=== PATIENT | male | born 1970 | race African-American/Black ===

== ENCOUNTER 2022-07-31 09:53 | Observation (INO) ==
--- NOTE | 2022-07-31 10:32 | Emergency Department Note ---
Impression & Plan Pulmonary embolism, DVT (deep venous thrombosis), Acute hyperglycemia ED Provider Note NAME: KRISTY [id number] COOKIE AGE: 52 SEX: M : 1970 ARRIVES VIA: Walk-In INFORMANT: Patient, ED PROVIDER(S): Tarik Simmons DO CHIEF COMPLAINT: Leg pain HPI: The patient is a 52-year-old male who presented to the emergency department from the assisted for an evaluation of leg pain. The patient states over the last few days has been noticing leg pain and a hardness behind his left knee through his left thigh and down to his left calf. He was evaluated in the [facility] and sent to the emergency department for an evaluation of possible DVT. The patient states he has had intermittent episodes of chest pain. He does notice some shortness of breath. He has no history of venous thromboembolic disease. He has been compliant with outpatient medications which include medication for diabetes. He states his blood sugars have been high at times. ROS: See above HPI for pertinent positives & negatives. A total of 10 systems reviewed and were otherwise negative. PAST MEDICAL HISTORY: See Below PAST SURGICAL HISTORY: See Below FAMILY HISTORY: See Below SOCIAL HISTORY: See Below HOME MEDICATIONS: See Below ALLERGIES: See Below VITALS: See Below PHYSICAL EXAMINATION: GENERAL: Patient is awake alert in no acute distress patient is resting comfortably and showing no signs of anxiety EYES: The conjunctivae are clear. The pupils are round and reactive. EARS, NOSE, MOUTH AND THROAT: The nose is without any evidence of any deformity. Mucous membranes are moist. Tongue is midline. NECK: The neck is nontender and supple. RESPIRATORY: Normal respiratory effort is noted there is no evidence of wheezing rhonchi or rales CARDIOVASCULAR: Regular rate and rhythm noted there no murmurs rubs or gallops normal S1 normal S2. GASTROINTESTINAL: The abdomen is soft. Abdomen is nontender. MUSCULOSKELETAL/EXTREMITIES: There is no evidence of gross deformity full range of motion is noted in the hips and shoulders. SKIN: There is no obvious evidence of any rash. There are no petechiae, pallor or cyanosis noted. There is tenderness over the left popliteal region. There is no significant pedal edema. Pulses are symmetric in both feet. Skin is warm and dry. NEUROLOGIC: Patient is awake alert and oriented x3 MEDICAL DECISION MAKING: The patient is a 52-year-old male who presented to the emergency department for an evaluation of leg pain. The patient has leg pain which has been ongoing for the last 48 hours. He had a palpable cord and tenderness over the area that would be concerning for a DVT. I discussed patient's laboratory and radiographic studies with him. He was found of a very significantly elevated D- dimer. He was found to have extensive DVT on lower extremity Doppler. This prompted a CT of the chest which shows bilateral pulmonary embolism with proximal clot as well as significant clot burden. He was started on heparin. I [facility] the [facility] have agreed to evaluate the patient in the emergency department for further management and disposition. The patient's vital signs did not reveal significant tachycardia or hypoxia. He did have some shortness of breath with exertion however. Given the patient's living situation at this time I do not feel he would be an immediate good candidate for outpatient treatment. Triage Nursing notes reviewed. Prior medical records reviewed Vital Signs: reviewed and remarkable for no significant abnormalities Differential diagnosis: Cardiac ischemia, aortic dissection, pulmonary embolism, pneumothorax, pneumonia, pericarditis, myocarditis, esophageal rupture, GERD, cholecystitis, pancreatitis, musculoskeletal, as well as other pathologies. ER treatment provided: See below Diagnostics interpreted by me: ECG: EKG was obtained in the emergency department. My interpretation is normal sinus rhythm at 86 bpm. There was no ectopy. There was no acute ST segment abnormalities noted. Biphasic T waves noted in the high anterior leads. No previous tracing was available. Cardiac Monitoring: An order was placed for continuous cardiac monitoring. The monitor shows a rate of 95 bpm with sinus rhythm. Laboratory studies: As stated above and show below. Imaging studies: See below. Radiographic imaging was reviewed by myself Consultation(s): I discussed this case with Dr. Jacobson who [facility] ED COURSE: Procedures: none Critical Care: I have personally spent greater than 45 minutes of critical care time in the direct management of this patient. This includes bedside care, interpretation of diagnostic studies, and testing, discussion with consultants, patient, and family members, and other required patient management activities. This 45 minutes is in excess of all separately billable procedures. Past Med/Surg History Medical History Antisocial personality disorder Hyperlipidemia Schizophrenia SVT (supraventricular tachycardia) Type 2 diabetes mellitus Allergies Allergies Allergy/AdvReac Type Severity Reaction Status Date / Time No Known Allergies Allergy Verified 07/31/22 14:35 Home Meds Home Medications Medication Instructions Recorded Confirmed aripiprazole 20 mg tablet 20 mg PO DAILY 07/31/22 07/31/22 aspirin 81 mg tablet,delayed 81 mg PO DAILY 07/31/22 07/31/22 release hydroxyzine pamoate 50 mg capsule 50 mg PO BID 07/31/22 07/31/22 metoprolol tartrate 50 mg tablet 25 mg PO BID 07/31/22 07/31/22 (Lopressor) sertraline 100 mg tablet 100 mg PO DAILY 07/31/22 07/31/22 Results & Data (ED) Vital Signs Vital Signs - 24 hr 07/31/22 09:57 07/31/22 13:13 07/31/22 13:12 Temperature 36.7 C Temperature Source Temporal Artery Scan Pulse Rate 99 H 78 78 Pulse Rate from SpO2 Sensor 78 Respiratory Rate 18 19 Blood Pressure 137/86 134/83 Blood Pressure Mean 103 100 Pulse Oximetry 95 98 Oxygen Delivery Method Room Air Sepsis Recent Fever Within 48 Hours No Sepsis New/Unexplained Change in Mental Status No Sepsis Action Taken by Nursing No Action Required 07/31/22 14:00 07/31/22 14:30 Temperature Temperature Source Pulse Rate 81 95 H Pulse Rate from SpO2 Sensor 81 Respiratory Rate 19 19 Blood Pressure 127/84 138/90 Blood Pressure Mean 98 106 Pulse Oximetry 95 Oxygen Delivery Method Sepsis Recent Fever Within 48 Hours Sepsis New/Unexplained Change in Mental Status Sepsis Action Taken by Long-Term Medications Current Medication List: was personally reviewed by me Laboratory Data Attestation: I reviewed the patient's lab results. 07/31/22 11:29 07/31/22 11:29 Lab Results 07/31/22 07/31/22 07/31/22 Range/Units 11:29 11:29 11:29 WBC 7.82 (4.8-10.8) K/ul RBC 4.94 (4.70-6.10) M/uL Hgb 14.0 (14.0-18.0) g/dl Hct 41.6 L (42.0-52.0) % MCV 84.2 (80.0-100.0) fL MCH 28.3 (25.0-34.0) pg MCHC 33.7 (32.0-36.0) g/dL RDW Std Deviation 40.3 (36.4-46.3) fL RDW Coeff of Romeo 13.2 (11.5-14.5) % Plt Count 301 (130-400) K/uL MPV 9.6 (9.4-12.4) fL Immature Gran % (Auto) 0.3 % Neut % (Auto) 68.7 % Lymph % (Auto) 21.4 % Carter % (Auto) 8.3 % Eos % (Auto) 0.9 % Baso % (Auto) 0.4 % Neut # (Auto) 5.38 (1.40-6.50) K/uL Lymph # (Auto) 1.67 (1.2-3.4) K/uL Carter # (Auto) 0.65 H (0.11-0.59) K/uL Eos # (Auto) 0.07 (0-0.50) K/uL Baso # (Auto) 0.03 (0-0.2) K/uL Immature Gran # (Auto) 0.02 (0.01-0.20) K/uL PT 11.2 (9.0-12.0) Seconds INR 1.1 (0.9-1.1) APTT 25.7 (21.0-31.0) Seconds PTT Ratio 0.9 D-Dimer [id number] H* (0-500) ug/L FEU Sodium 138 (136-145) mmol/L Potassium 4.2 (3.5-5.1) mmol/L Chloride 103 (98-107) mmol/L Carbon Dioxide 31 (21-32) mmol/L Anion Gap 4 (3-11) BUN 14 (6-23) mg/dl Creatinine 0.87 (0.6-1.4) mg/dl Est Cr Clr Drug Dosing 110.3 ml/min Est GFR ( Amer) 115.8 ml/min Est GFR (Non-Af Amer) 99.9 ml/min BUN/Creatinine Ratio 16.1 (10-20) Glucose 304 H* (70-99(Fasting)) mg/dl Calcium 9.7 (8.5-10.1) mg/dl Total Bilirubin 0.4 (0.2-1.0) mg/dl AST 12 L (13-39) U/L ALT 12 (7-52) U/L Alkaline Phosphatase 92 (34-104) U/L Troponin I High Sens 3.0 (0-20) pg/ml Total Protein 7.6 (6.0-8.3) gm/dl Albumin 3.8 (3.4-5.0) gm/dl Globulin 3.8 (2.5-4.0) gm/dl Albumin/Globulin Ratio 1.0 (0.9-2) Lipase 11 (11-82) U/L SARS-CoV-2, RNA, NAAT (NEGATIVE) 07/31/22 Range/Units 13:50 WBC (4.8-10.8) K/ul RBC (4.70-6.10) M/uL Hgb (14.0-18.0) g/dl Hct (42.0-52.0) % MCV (80.0-100.0) fL MCH (25.0-34.0) pg MCHC (32.0-36.0) g/dL RDW Std Deviation (36.4-46.3) fL RDW Coeff of Romeo (11.5-14.5) % Plt Count (130-400) K/uL MPV (9.4-12.4) fL Immature Gran % (Auto) % Neut % (Auto) % Lymph % (Auto) % Carter % (Auto) % Eos % (Auto) % Baso % (Auto) % Neut # (Auto) (1.40-6.50) K/uL Lymph # (Auto) (1.2-3.4) K/uL Carter # (Auto) (0.11-0.59) K/uL Eos # (Auto) (0-0.50) K/uL Baso # (Auto) (0-0.2) K/uL Immature Gran # (Auto) (0.01-0.20) K/uL PT (9.0-12.0) Seconds INR (0.9-1.1) APTT (21.0-31.0) Seconds PTT Ratio D-Dimer (0-500) ug/L FEU Sodium (136-145) mmol/L Potassium (3.5-5.1) mmol/L Chloride (98-107) mmol/L Carbon Dioxide (21-32) mmol/L Anion Gap (3-11) BUN (6-23) mg/dl Creatinine (0.6-1.4) mg/dl Est Cr Clr Drug Dosing ml/min Est GFR ( Amer) ml/min Est GFR (Non-Af Amer) ml/min BUN/Creatinine Ratio (10-20) Glucose (70-99(Fasting)) mg/dl Calcium (8.5-10.1) mg/dl Total Bilirubin (0.2-1.0) mg/dl AST (13-39) U/L ALT (7-52) U/L Alkaline Phosphatase (34-104) U/L Troponin I High Sens (0-20) pg/ml Total Protein (6.0-8.3) gm/dl Albumin (3.4-5.0) gm/dl Globulin (2.5-4.0) gm/dl Albumin/Globulin Ratio (0.9-2) Lipase (11-82) U/L SARS-CoV-2, RNA, NAAT NEGATIVE (NEGATIVE) Administered Medications Heparin Sodium/Dextrose (Heparin Sodium/Dextrose) 25,000 units in 500 mls @ 29 mls/hr IV .[id number] [facility]; Protocol Stop: 08/30/22 13:44 Last Admin: 07/31/22 14:08 Dose: 1,450 units/hr, 29 mls/hr Documented By: DEVAN Co-signed By: [id number] Discontinued Medications Heparin Sodium (Porcine) (Heparin Sod (Porcine) 1000 Unit/Ml) 6,000 units IV NOW ONE Stop: 07/31/22 14:16 Last Admin: 07/31/22 14:07 Dose: 6,000 units Documented By: DEVAN Co-signed By: [id number] Ioversol (Optiray 320 500ml) 120 ml IV ONCE ONE Stop: 07/31/22 13:25 Last Admin: 07/31/22 13:25 Dose: 120 ml Documented By: [place] Imaging Data Radiologist's Impression: Venous Doppler Study 07/31/22 10:24 US venous doppler LE LT CLINICAL HISTORY: pain TECHNIQUE: Left lower extremity real-time compression venous ultrasound with Color Doppler imaging. Utilizing real-time ultrasonic imaging multiple real time high-resolution ultrasonic images with compression and noncompression maneuvers of the deep venous system in addition to color doppler imaging were performed from the common femoral vein through the proximal calf veins. COMPARISON: None available at the time of this dictation. FINDINGS/IMPRESSION: A deep venous thrombus extends from the proximal femoral vein to the mid posterior tibial and peroneal veins. ACT 112: Negative or not required by law. Electronically signed by: Gary Danielson M.D. 07/31/2022 12:45 PM Chest X-Ray 07/31/22 10:25 XR chest 1V portable CLINICAL HISTORY: Chest pain, nonspecific COMPARISON STUDY: No previous studies for comparison. FINDINGS: Lung volumes are normal. Lungs are clear. There is no pneumothorax or pleural effusion. Cardiac size is normal. Mediastinal contours are normal. There is no evidence for pulmonary edema. IMPRESSION: No acute cardiopulmonary findings. ACT 112: Negative or not required by law. Electronically signed by: Irvin Walden M.D. 07/31/2022 10:59 AM Chest CTA 07/31/22 13:13 CT ANGIOGRAM OF THE CHEST CLINICAL HISTORY: Elevated d-dimer. Deep venous thrombosis. COMPARISON STUDY: Chest x-ray dated 07/31/2022. TECHNIQUE: Following the IV administration of 120 cc of Optiray 320, CT angiogram of the chest was performed from the upper abdomen to the thoracic inlet utilizing the pulmonary embolus protocol. Images are reviewed in the axial, sagittal, and coronal planes. 3-D MIPS images are created and assessed. IV contrast was administered without complication. A dose lowering technique was utilized adhering to the principles of ALARA. CT DOSE: 745.05 mGy.cm FINDINGS: Thyroid: Mildly enlarged and heterogeneous. Thoracic aorta: The thoracic aorta is normal in caliber and demonstrates standard 3-vessel arch anatomy. No dissection is seen. Pulmonary vasculature: The pulmonary trunk is normal in caliber. There is pulmonary embolus within the distal right main pulmonary artery. This extends into the upper, middle, and lower lobe pulmonary arteries and segmental and subsegmental branches. Thrombus is also seen within the distal left main pulmonary artery. This extends into the left lower lobe and lingular pulmonary arteries and segmental and subsegmental branches. There are segmental and subsegmental pulmonary emboli within the left upper lobe. Heart: The heart is normal in size and without pericardial effusion. Lungs and pleural spaces: There is trace left pleural and dependent bibasilar atelectasis. No airspace consolidation is seen typical for pneumonia. The trachea and central airways are clear. Mediastinum: There is no mediastinal lymphadenopathy. Gwen: Clear. Axillae: There is no axillary lymphadenopathy. Upper abdomen: A 12 mm left adrenal nodule meets CT criteria for a fat- containing adenoma. Partially visualized upper abdominal viscera is otherwise within normal limits. Skeletal structures: No lytic or blastic bony lesions are seen. IMPRESSION: 1. Extensive bilateral pulmonary embolus as above. 2. Trace left pleural effusion. 3. No airspace consolidation is identified. 4. Additional findings as above. ACT 112: Negative or not required by law. Electronically signed by: Baljit Diaz M.D. 07/31/2022 1:52 PM Discharge Plan Visit Data Chief Complaint: Lower Extremity Injury/Pain Stated Complaint: POSSIBLE LOWER LEFT DVT ED Provider: Tarik Simmons Discharge Problem: Pulmonary embolism, DVT (deep venous thrombosis), Acute hyperglycemia Patient Disposition: Being Evaluated by Hospitalist Forms Stand Alone Forms: My [facility] [facility] Prescriptions Prescriptions: No Action aripiprazole 20 mg tablet 20 mg PO DAILY sertraline 100 mg tablet 100 mg PO DAILY hydroxyzine pamoate 50 mg capsule 50 mg PO BID metoprolol tartrate [Lopressor] 50 mg tablet 25 mg PO BID aspirin 81 mg tablet,delayed release (DR/EC) 81 mg PO DAILY Referrals Referrals: Meron NGUYEN [Primary Care Provider] -
--- NOTE | 2022-07-31 11:00 | XRay Report ---
XR chest 1V portable CLINICAL HISTORY: Chest pain, nonspecific COMPARISON STUDY: No previous studies for comparison. FINDINGS: Lung volumes are normal. Lungs are clear. There is no pneumothorax or pleural effusion. Car diac size is normal. Mediastinal contours are normal. There is no evidence for pulmonary edema. IMPRESSION: No acute cardiopulmonary findings. ACT 112: Negative or not required by law. Electronically signed by: Irvin Walden M.D. 07/31/2022 10:59 AM
[2022-07-31 11:53] LABS: Basophils # (auto) 0.03 K/uL (0-0.2); Basophils % (auto) 0.4 %; Eosinophils # (auto) 0.07 K/uL (0-0.50); Eosinophils % (auto) 0.9 %; Hematocrit (blood only) 41.6 % (42.0-52.0); Immature Granulocytes # (auto) 0.02 K/uL (0.01-0.20); Immature Granulocytes % (auto) 0.3 %; Lymphocytes # (auto) 1.67 K/uL (1.2-3.4); Lymphocytes % (auto) 21.4 %; Mean Corpuscular Hemoglobin 28.3 pg (25.0-34.0); Mean Corpuscular Hgb Conc 33.7 g/dL (32.0-36.0); Mean Corpuscular Volume 84.2 fL (80.0-100.0); Mean Platelet Volume 9.6 fL (9.4-12.4); Monocytes # (auto) 0.65 K/uL (0.11-0.59); Monocytes % (auto) 8.3 %; Neutrophils # (auto) 5.38 K/uL (1.40-6.50); Neutrophils % (auto) 68.7 %; Platelet Count 301 K/uL (130-400); RDW Coefficient of Variation 13.2 % (11.5-14.5); RDW Standard Deviation 40.3 fL (36.4-46.3); Red Blood Count 4.94 M/uL (4.70-6.10); White Blood Count 7.82 K/ul (4.8-10.8)
[2022-07-31 12:23] LABS: INR 1.1 (0.9-1.1); Partial Thromboplastin Ratio 0.9; Partial Thromboplastin Time 25.7 Seconds (21.0-31.0); Prothrombin Time 11.2 Seconds (9.0-12.0)
[2022-07-31 12:41] LABS: Albumin Level 3.8 gm/dl (3.4-5.0); BUN Creatinine Ratio 16.1 (10-20); Bilirubin,Total 0.4 mg/dl (0.2-1.0); Calcium 9.7 mg/dl (8.5-10.1); Creatinine Clr Calc Pharmacy 110.3 ml/min; Est GFR (African American) 115.8 ml/min; Est GFR (Non-African American) 99.9 ml/min; Globulin 3.8 gm/dl (2.5-4.0); Potassium 4.2 mmol/L (3.5-5.1); Total Protein 7.6 gm/dl (6.0-8.3)
--- NOTE | 2022-07-31 12:47 | Ultrasound Report ---
US venous doppler LE LT CLINICAL HISTORY: pain TECHNIQUE: Left lower extremity real-time compression venous ultrasound with Color Doppler imaging. U tilizing real-time ultrasonic imaging multiple real time high-resolution ultrasonic images with compr ession and noncompression maneuvers of the deep venous system in addition to color doppler imaging we re performed from the common femoral vein through the proximal calf veins. COMPARISON: None available at the time of this dictation. FINDINGS/IMPRESSION: A deep venous thrombus extends from the proximal femoral vein to the mid posterior tibial and peronea l veins. ACT 112: Negative or not required by law. Electronically signed by: Gary Danielson M.D. 07/31/2022 12:45 PM
[2022-07-31 13:11] LABS: D Dimer 24720 ug/L FEU (0-500)
[2022-07-31] MEDS ORDERED: OPTIRAY 320 500ml IV ONE (13:24)
[2022-07-31] MEDS ORDERED: Heparin IV Adult Wt-Based Standard WITH Bolus Protocol IV STA (13:29)
[2022-07-31] MEDS ORDERED: HEPARIN SOD (PORCINE) 1000 UNIT/ML IV ONE ×2 (13:44→14:15)
--- NOTE | 2022-07-31 13:53 | CT Scan Report ---
CT ANGIOGRAM OF THE CHEST CLINICAL HISTORY: Elevated d-dimer. Deep venous thrombosis. COMPARISON STUDY: Chest x-ray dated 07/31/2022. TECHNIQUE: Following the IV administration of 120 cc of Optiray 320, CT angiogram of the chest was pe rformed from the upper abdomen to the thoracic inlet utilizing the pulmonary embolus protocol. Images are reviewed in the axial, sagittal, and coronal planes. 3-D MIPS images are created and assessed. I V contrast was administered without complication. A dose lowering technique was utilized adhering to the principles of ALARA. CT DOSE: 745.05 mGy.cm FINDINGS: Thyroid: Mildly enlarged and heterogeneous. Thoracic aorta: The thoracic aorta is normal in caliber and demonstrates standard 3-vessel arch anato my. No dissection is seen. Pulmonary vasculature: The pulmonary trunk is normal in caliber. There is pulmonary embolus within th e distal right main pulmonary artery. This extends into the upper, middle, and lower lobe pulmonary a rteries and segmental and subsegmental branches. Thrombus is also seen within the distal left main pu lmonary artery. This extends into the left lower lobe and lingular pulmonary arteries and segmental a nd subsegmental branches. There are segmental and subsegmental pulmonary emboli within the left upper lobe. Heart: The heart is normal in size and without pericardial effusion. Lungs and pleural spaces: There is trace left pleural and dependent bibasilar atelectasis. No airspac e consolidation is seen typical for pneumonia. The trachea and central airways are clear. Mediastinum: There is no mediastinal lymphadenopathy. Gwen: Clear. Axillae: There is no axillary lymphadenopathy. Upper abdomen: A 12 mm left adrenal nodule meets CT criteria for a fat-containing adenoma. Partially visualized upper abdominal viscera is otherwise within normal limits. Skeletal structures: No lytic or blastic bony lesions are seen. IMPRESSION: 1. Extensive bilateral pulmonary embolus as above. 2. Trace left pleural effusion. 3. No airspace consolidation is identified. 4. Additional findings as above. ACT 112: Negative or not required by law. Electronically signed by: Baljit Diaz M.D. 07/31/2022 1:52 PM
[2022-07-31] MEDS: HEPARIN SODIUM/DEXTROSE 25,000 UNITS/500 ML BAG IV SCH (14:08)
--- NOTE | 2022-07-31 14:32 | History & Physical Report ---
Date of Service July 31, 2022 Assessment & Plan (1) Acute pulmonary embolism: Plan: Unprovoked - recommend 6 months of treatment and making sure he is up-to-date on all cancer screening (he has never had a colonoscopy) Basic hypercoagulable work-up with a.m. labs. Consider follow-up with hematology. Intravenous heparin standard with bolus TTE Discuss with [facility] tomorrow regarding ongoing treatment (2) Left leg DVT: Plan: No common femoral vein thrombosis noted therefore not consistent with May Thurner syndrome. Treatment with anticoagulation as above (3) Hyperlipidemia: Plan: Continue rosuvastatin 20 mg p.o. daily (4) Schizophrenia: Plan: Continue aripiprazole 20 mg p.o. daily Continue sertraline 100 mg p.o. daily Continue hydroxyzine 100 mg p.o. at bedtime (5) Type 2 diabetes mellitus: Plan: HbA1c with a.m. labs Switch Novolin N for Lantus with the same dosing of 32 units in the morning and 20 units at night NovoLog based on basal dosing: --Goal BSG Range: Low 110 mg/dL, High 140 mg/dL --Correction Factor: 20 mg/dL/unit --Carbohydrate ratio = 7 g/unit --BSGs ACHS if eating, q6h if npo (6) Hypertension: Plan: Continue metoprolol tartrate 12.5 mg p.o. twice daily Plan VTE Prophylaxis -intravenous heparin as above Diet -type 2 diabetes Disposition -observation status to PCU Admission and Anticipated Discharge Date Admission Date: July 31, 2022 History of Present Illness Chief Complaint: Left leg swelling Primary Care Provider: [employer] Meron Damon Ricci is a 52-year-old male from [facility] who presents to the ER with left lower leg swelling. Increased swelling and pain in his left leg thigh and calf progressively getting worse over the last week. He was sent to the ER for evaluation of possible DVT. Ultrasound venous Doppler of his left lower extremity confirmed a deep vein thrombosis extending from the proximal femoral vein to the mid posterior tibial and peroneal veins. He denies any chest pain or shortness of breath however shortness of breath on exertion was noted by the ER physician therefore he underwent CT for PE which showed bilateral extensive pulmonary emboli. He was started on intravenous heparin standard drip with bolus and referred to medicine for admission and ongoing management of pulmonary emboli. He is a non-smoker. No family history of DVT or PE although he is not close to his family. No prior colonoscopy for cancer screening. No known sickle cell trait or anemia. Allergies Allergy/AdvReac Type Severity Reaction Status Date / Time No Known Allergies Allergy Verified 07/31/22 15:24 Home Medications Medication Instructions Recorded Confirmed Type aripiprazole 20 mg tablet 20 mg PO DAILY 07/31/22 07/31/22 History aspirin 81 mg tablet,delayed 81 mg PO DAILY 07/31/22 07/31/22 History release hydroxyzine pamoate 50 mg capsule 100 mg PO HS 07/31/22 07/31/22 History insulin NPH isoph U-100 human 100 20 unit subcut QPM 07/31/22 07/31/22 History unit/mL subcutaneous suspension (Novolin N NPH U-100 Insulin isophane) insulin NPH isoph U-100 human 100 32 unit subcut QAM 07/31/22 07/31/22 History unit/mL subcutaneous suspension (Novolin N NPH U-100 Insulin isophane) insulin regular human 100 unit/mL 0 unit subcut .UD PRN Hyperglycemia 07/31/22 07/31/22 History injection solution (Novolin R Regular U-100 Insulin) insulin regular human 100 unit/mL 10 unit subcut QPM 07/31/22 07/31/22 History injection solution (Novolin R Regular U-100 Insulin) insulin regular human 100 unit/mL 14 unit subcut QAM 07/31/22 07/31/22 History injection solution (Novolin R Regular U-100 Insulin) metoprolol tartrate 25 mg tablet 12.5 mg PO BID 07/31/22 07/31/22 History rosuvastatin 20 mg tablet 20 mg PO DAILY 07/31/22 07/31/22 History sertraline 100 mg tablet 100 mg PO DAILY 07/31/22 07/31/22 History Past Med/Surg History Medical History Antisocial personality disorder Hyperlipidemia Schizophrenia SVT (supraventricular tachycardia) Type 2 diabetes mellitus Social History Smoking Status: Never smoker Hx Alcohol Use: No Hx Substance Use: No Preferred Language: Honduran Communication Ability: Effective Clinical Product Manager Required: No Beliefs That Will Affect Care: None Current Living Situation: Other Current Living Situation Comment: [facility] Feels Safe at Home: Yes Assistive Devices: None Review of Systems Review of Systems: All systems reviewed & are unremarkable except as noted in HPI & below Physical Exam Constitutional: WD/WN, vitals as above ENMT: external ear and nose normal, oropharynx normal Respiratory: normal respiratory effort, lungs clear to auscultation Cardiovascular: RRR, no murmur, no edema Gastrointestinal (Abdomen): normal bowel sounds, soft, nontender, no hepatosplenomegaly Musculoskeletal: no cyanosis or clubbing, extremities motor strength 5/5 Skin: no rashes, warm and dry Neurologic: moves all extremities and awake; not confused Psychiatric: A+Ox3, euthymic affect Results & Data Results & Data ([facility]) Vital Signs (Past 12 Hours) Vital Signs Temp Pulse Resp BP Pulse Ox O2 Del Method 07/31/22 14:00 81 19 127/84 95 07/31/22 13:12 78 19 134/83 98 07/31/22 13:13 78 07/31/22 09:57 36.7 C 99 H 18 137/86 95 Room Air Laboratory Results Abnormal lab results 07/31/22 07/31/22 07/31/22 Range/Units 11:29 11:29 11:29 Hct 41.6 L (42.0-52.0) % [place] # (Auto) 0.65 H (0.11-0.59) K/uL D-Dimer 23884 H* (0-500) ug/L FEU Glucose 304 H* (70-99(Fasting)) mg/dl AST 12 L (13-39) U/L Diagnostic Findings XR chest 1V portable CLINICAL HISTORY: Chest pain, nonspecific COMPARISON STUDY: No previous studies for comparison. FINDINGS: Lung volumes are normal. Lungs are clear. There is no pneumothorax or pleural effusion. Cardiac size is normal. Mediastinal contours are normal. There is no evidence for pulmonary edema. IMPRESSION: No acute cardiopulmonary findings. CT ANGIOGRAM OF THE CHEST CLINICAL HISTORY: Elevated d-dimer. Deep venous thrombosis. COMPARISON STUDY: Chest x-ray dated 07/31/2022. TECHNIQUE: Following the IV administration of 120 cc of Optiray 320, CT angiogram of the chest was performed from the upper abdomen to the thoracic inlet utilizing the pulmonary embolus protocol. Images are reviewed in the axial, sagittal, and coronal planes. 3-D MIPS images are created and assessed. IV contrast was administered without complication. A dose lowering technique was utilized adhering to the principles of ALARA. CT DOSE: 745.05 mGy.cm FINDINGS: Thyroid: Mildly enlarged and heterogeneous. Thoracic aorta: The thoracic aorta is normal in caliber and demonstrates standard 3-vessel arch anatomy. No dissection is seen. Pulmonary vasculature: The pulmonary trunk is normal in caliber. There is pulmonary embolus within the distal right main pulmonary artery. This extends into the upper, middle, and lower lobe pulmonary arteries and segmental and subsegmental branches. Thrombus is also seen within the distal left main pulmonary artery. This extends into the left lower lobe and lingular pulmonary arteries and segmental and subsegmental branches. There are segmental and subsegmental pulmonary emboli within the left upper lobe. Heart: The heart is normal in size and without pericardial effusion. Lungs and pleural spaces: There is trace left pleural and dependent bibasilar atelectasis. No airspace consolidation is seen typical for pneumonia. The trachea and central airways are clear. Mediastinum: There is no mediastinal lymphadenopathy. Gwen: Clear. Axillae: There is no axillary lymphadenopathy. Upper abdomen: A 12 mm left adrenal nodule meets CT criteria for a fat- containing adenoma. Partially visualized upper abdominal viscera is otherwise within normal limits. Skeletal structures: No lytic or blastic bony lesions are seen. IMPRESSION: 1. Extensive bilateral pulmonary embolus as above. 2. Trace left pleural effusion. 3. No airspace consolidation is identified. 4. Additional findings as above. US venous doppler LE LT CLINICAL HISTORY: pain TECHNIQUE: Left lower extremity real-time compression venous ultrasound with Color Doppler imaging. Utilizing real-time ultrasonic imaging multiple real time high-resolution ultrasonic images with compression and noncompression maneuvers of the deep venous system in addition to color doppler imaging were performed from the common femoral vein through the proximal calf veins. COMPARISON: None available at the time of this dictation. FINDINGS/IMPRESSION: A deep venous thrombus extends from the proximal femoral vein to the mid posterior tibial and peroneal veins. Medications Administered ER medications given: Heparin IV bolus and drip ECG Indication: other Rate (beats per minute): 86 Rhythm: normal sinus Findings: + other (Septal infarct, age undetermined) Comparison ECG Date: no prior available Code Status & VTE Plan Code Status Full VTE Prophylaxis Plan VTE Prophylaxis will be ordered: Yes PG Care Time/CCT Total # of Minutes Spent Total Time Spent with Patient: Total time spent is greater than 50% in coordination of care (as documented) at patient's floor/unit and/or counseling patient: Coding Level of Care Code 66605 INT INP/OBS CARE 3/75MIN Diagnoses Acute pulmonary embolism I26.99 Left leg DVT I82.402 Hyperlipidemia E78.5 Schizophrenia F20.9 Type 2 diabetes mellitus E11.9 Hypertension I10
[2022-07-31] MEDS ORDERED: NovoLIN-R INSULIN PER UNIT CHARGE IV STA ×2 (14:41→14:47)
[2022-07-31] MEDS ORDERED: SODIUM CHLORIDE 0.9% 1000ML 1,000 ML IV ONE (14:47)
[2022-07-31] MEDS ORDERED: ACETAMINOPHEN 325 MG TAB PO PRN (16:24)
[2022-07-31] MEDS ORDERED: GLUCOSE 40% GEL 15 GM TUBE PO PRN (16:24)
[2022-07-31] MEDS ORDERED: DEXTROSE 50% 50 ML SYRINGE IV PRN (16:24)
[2022-07-31] MEDS ORDERED: GLUCOSE 10 TAB/TUBE PO PRN (16:24)
[2022-07-31] MEDS ORDERED: CARBOHYDRATES FOR HYPOGLYCEMIA PO PRN (16:24)
[2022-07-31] MEDS ORDERED: GLUCAGON FOR INJ 1 MG VIAL SQ PRN (16:24)
[2022-07-31] MEDS: INSULIN ASPART PER UNIT SC SCH ×2 (18:09→20:38)
[2022-07-31] MEDS: METOPROLOL TARTRATE 25 MG TAB PO SCH (20:46)
[2022-07-31] MEDS: hydrOXYzine HCl 25 MG TAB PO SCH (20:47)
[2022-07-31] MEDS ORDERED: LANTUS PER UNIT CHARGE SQ SCH (21:00)
[2022-07-31 21:01] LABS: Partial Thromboplastin Ratio 1.6; Partial Thromboplastin Time 44.1 Seconds (21.0-31.0)
--- NOTE | 2022-07-31 22:17 | XCELERA ---
[id number] [id number]
[2022-08-01 04:58] LABS: Partial Thromboplastin Ratio 1.6; Partial Thromboplastin Time 44.8 Seconds (21.0-31.0)
[2022-08-01 05:00] LABS: Basophils # (auto) 0.03 K/uL (0-0.2); Basophils % (auto) 0.3 %; Eosinophils # (auto) 0.11 K/uL (0-0.50); Eosinophils % (auto) 1.1 %; Hematocrit (blood only) 39.9 % (42.0-52.0); Hemoglobin 13.6 g/dl (14.0-18.0); Immature Granulocytes # (auto) 0.03 K/uL (0.01-0.20); Immature Granulocytes % (auto) 0.3 %; Lymphocytes # (auto) 2.49 K/uL (1.2-3.4); Lymphocytes % (auto) 25.7 %; Mean Corpuscular Hemoglobin 28.4 pg (25.0-34.0); Mean Corpuscular Hgb Conc 34.1 g/dL (32.0-36.0); Mean Corpuscular Volume 83.3 fL (80.0-100.0); Mean Platelet Volume 9.6 fL (9.4-12.4); Monocytes # (auto) 0.74 K/uL (0.11-0.59); Monocytes % (auto) 7.6 %; Platelet Count 324 K/uL (130-400); RDW Standard Deviation 39.6 fL (36.4-46.3); Red Blood Count 4.79 M/uL (4.70-6.10)
[2022-08-01 05:20] LABS: Potassium 3.7 mmol/L (3.5-5.1)
[2022-08-01 05:26] LABS: Creatinine Clr Calc Pharmacy 117.9 ml/min; Est GFR (African American) 111.2 ml/min
--- NOTE | 2022-08-01 06:15 | Electrocardiogram Report ---
Test Reason : Blood Pressure : / mmHG Vent. Rate : 086 BPM Atrial Rate : 086 BPM P-R Int : 150 ms QRS Dur : 086 ms QT Int : 368 ms P-R-T Axes : 059 -17 038 degrees QTc Int : 440 ms Normal sinus rhythm Septal infarct , age undetermined Abnormal ECG No previous ECGs available Confirmed by Win Ruiz ([id number]) on 08/01/2022 6:15:16 AM Referred By: Meron NGUYEN Confirmed By:Win Ruiz
[2022-08-01 06:59] LABS: Estimated Average Glucose 318 mg/dl; Hemoglobin A1C 12.7 % (4.5-5.6)
[2022-08-01] MEDS: ARIPiprazole 10 MG TAB PO SCH (08:29)
[2022-08-01] MEDS: METOPROLOL TARTRATE 25 MG TAB PO SCH ×2 (08:30→21:07)
[2022-08-01] MEDS: HEPARIN SODIUM/DEXTROSE 25,000 UNITS/500 ML BAG IV SCH ×2 (08:31→19:15)
[2022-08-01] MEDS: LANTUS PER UNIT CHARGE SQ SCH (08:36)
[2022-08-01] MEDS: INSULIN ASPART PER UNIT SC SCH ×4 (08:36→21:00)
--- NOTE | 2022-08-01 08:45 | Hospitalist Progress Note ---
Date of Service August 01, 2022 Assessment & Plan (1) Acute pulmonary embolism: Plan: Unprovoked - recommend 6 months of treatment and making sure he is up-to-date on all cancer screening (he has never had a colonoscopy) TTE without evidence of right heart strain, no SOB, no supplemental oxygen needs Will discuss with correctional facility regarding if any barriers to DOAC for treatment vs. coumadin FVL, prothrombin, homocysteine levels pending; consider Hematology referral on discharge Continue heparin gtt for now (2) Left leg DVT: Plan: DVT noted on imaging that extends from the proximal femoral vein to the mid posterior tibial and peroneal veins Treatment with anticoagulation as above (3) Hyperlipidemia: Plan: Continue rosuvastatin 20 mg p.o. daily (4) Schizophrenia: Plan: Continue aripiprazole 20 mg p.o. daily Continue sertraline 100 mg p.o. daily Continue hydroxyzine 100 mg p.o. at bedtime (5) Type 2 diabetes mellitus: Plan: HbA1c 12.7 on 07/31/22 Increase basal insulin to 32 units in the morning and 26 units at night, with SSI (adjust basal dosing and SSI parameters based on BSGs) hematology nurse educator consulted (6) Hypertension: Plan: Continue metoprolol tartrate 12.5 mg p.o. twice daily Plan VTE Prophylaxis -intravenous heparin as above Diet -type 2 diabetes Disposition -observation status to PCU Admission and Anticipated Discharge Date Admission Date: July 31, 2022 Subjective No overnight events. No complaints from patient this morning including no SOB, chest pain, abdominal complaints, nausea, lightheadedness. Vitals stable and no oxygen needs overnight. Patient denies any known personal or family history of blood clots. Review of Systems Review of Systems: All systems reviewed & are unremarkable except as noted in Subjective Physical Exam Constitutional: WD/WN, vitals as above Respiratory: normal respiratory effort, lungs clear to auscultation Cardiovascular: RRR, no murmur, no edema Gastrointestinal (Abdomen): normal bowel sounds, soft, nontender, no hepatosplenomegaly Skin: no rashes, warm and dry Psychiatric: A+Ox3, euthymic affect Results & Data Results & Data ([facility]) Vital Signs (Past 12 Hours) Vital Signs Temp Pulse Pulse Resp BP BP Pulse Ox 08/01/22 07:47 36.7 C 84 20 149/79 H 94 08/01/22 04:27 37.0 C 79 18 131/78 93 07/31/22 23:18 36.8 C 73 18 141/82 H 92 07/31/22 23:04 83 O2 Del Method 08/01/22 07:47 Room Air 08/01/22 04:27 Room Air 07/31/22 23:18 Room Air 07/31/22 23:04 PG Care Time/CCT Total # of Minutes Spent Total Time Spent with Patient: Total time spent is greater than 50% in coordination of care (as documented) at patient's floor/unit and/or counseling patient: Coding Level of Care Code 14948 SUB INP/OBS CARE 2/35MIN Diagnoses Acute pulmonary embolism I26.99 Left leg DVT I82.402 Hyperlipidemia E78.5 Schizophrenia F20.9 Type 2 diabetes mellitus E11.9 Hypertension I10
[2022-08-01] MEDS: ROSUVASTATIN CALCIUM 20 MG TAB PO SCH (09:21)
[2022-08-01] MEDS: SERTRALINE HCL 100 MG TABLET PO SCH (09:21)
[2022-08-01 12:36] LABS: Partial Thromboplastin Ratio 1.6; Partial Thromboplastin Time 44.1 Seconds (21.0-31.0)
[2022-08-01 20:09] LABS: Partial Thromboplastin Ratio 1.6
[2022-08-01] MEDS ORDERED: LANTUS PER UNIT CHARGE SQ SCH (21:00)
[2022-08-01] MEDS: hydrOXYzine HCl 25 MG TAB PO SCH (21:07)
[2022-08-02] MEDS: HEPARIN SODIUM/DEXTROSE 25,000 UNITS/500 ML BAG IV SCH (02:31)
[2022-08-02 03:56] LABS: Partial Thromboplastin Time 55.5 Seconds (21.0-31.0)
[2022-08-02] MEDS: LANTUS PER UNIT CHARGE SQ SCH (08:30)
[2022-08-02] MEDS: INSULIN ASPART PER UNIT SC SCH ×2 (08:30→12:46)
[2022-08-02] MEDS: METOPROLOL TARTRATE 25 MG TAB PO SCH (08:38)
[2022-08-02] MEDS: ARIPiprazole 10 MG TAB PO SCH (08:38)
[2022-08-02] MEDS: SERTRALINE HCL 100 MG TABLET PO SCH (08:39)
[2022-08-02] MEDS: ROSUVASTATIN CALCIUM 20 MG TAB PO SCH (08:39)
[2022-08-02] MEDS ORDERED: APIXABAN 5 MG TABLET PO SCH (10:15)
--- NOTE | 2022-08-02 11:16 | Discharge Summary ---
Discharge Summary Date of Service August 02, 2022 Admission HPI Per Admitting Provider Damon Ricci is a 52-year-old male from [facility] who presents to the ER with left lower leg swelling. Increased swelling and pain in his left leg thigh and calf progressively getting worse over the last week. He was sent to the ER for evaluation of possible DVT. Ultrasound venous Doppler of his left lower extremity confirmed a deep vein thrombosis extending from the proximal femoral vein to the mid posterior tibial and peroneal veins. He denies any chest pain or shortness of breath however shortness of breath on exertion was noted by the ER physician therefore he underwent CT for PE which showed bilateral extensive pulmonary emboli. He was started on intravenous heparin standard drip with bolus and referred to medicine for admission and ongoing management of pulmonary emboli. He is a non-smoker. No family history of DVT or PE although he is not close to his family. No prior colonoscopy for cancer screening. No known sickle cell trait or anemia. Admission Exam Per Admitting Provider Constitutional: WD/WN, vitals as above ENMT: external ear and nose normal, oropharynx normal Respiratory: normal respiratory effort, lungs clear to auscultation Cardiovascular: RRR, no murmur, no edema Gastrointestinal (Abdomen): normal bowel sounds, soft, nontender, no hepatosplenomegaly Musculoskeletal: no cyanosis or clubbing, extremities motor strength 5/5 Skin: no rashes, warm and dry Neurologic: moves all extremities and awake; not confused Psychiatric: A+Ox3, euthymic affect Principal Dx & Hospital Course #1 = Principal Diagnosis (1) Acute pulmonary embolism: (2) Left leg DVT: (3) Hyperlipidemia: (4) Schizophrenia: (5) Type 2 diabetes mellitus: (6) Hypertension: Plan Acute pulmonary embolism: Unprovoked - recommend 6 months of treatment and making sure he is up-to-date on all cancer screening (he has never had a colonoscopy) TTE without evidence of right heart strain, no SOB, no supplemental oxygen needs FVL, prothrombin, homocysteine levels pending; consider Hematology referral in the future Heparin gtt -> transitioned to Eliquis 10mg BID x7 days starting 08/02, with 5mg BID thereafter Left leg DVT: DVT noted on imaging that extends from the proximal femoral vein to the mid posterior tibial and peroneal veins Treatment with anticoagulation as above Hyperlipidemia: Continue rosuvastatin 20 mg p.o. daily Schizophrenia: Continue aripiprazole 20 mg p.o. daily Continue sertraline 100 mg p.o. daily Continue hydroxyzine 100 mg p.o. at bedtime Type 2 diabetes mellitus: HbA1c 12.7 on 07/31/22 Patient endorses non-compliance to insulin regimen and nonadherence to diabetic- friendly diet Continue previous insulin recommendations from correctional facility Humulin-N 32 units with breakfast/20 units with supper Humulin-R 14 units with breakfast/10 units with supper + sliding scale clinical trial educator consulted and stressed importance of BSG control especially for future eye, kidney, heart, foot health Hypertension: Continue metoprolol tartrate 12.5 mg p.o. twice daily Plan DVT/PE treatment and d/c back to [facility] Discharge Exam Constitutional WD/WN, vitals as above Respiratory breathing comfortably, saturating to 94% on RA Psychiatric A+Ox3, euthymic affect Updated Medication List Medication Instructions Recorded Confirmed Type aripiprazole 20 mg tablet 20 mg PO DAILY 07/31/22 07/31/22 History aspirin 81 mg tablet,delayed 81 mg PO DAILY 07/31/22 07/31/22 History release hydroxyzine pamoate 50 mg capsule 100 mg PO HS 07/31/22 07/31/22 History insulin NPH isoph U-100 human 100 20 unit subcut QPM 07/31/22 07/31/22 History unit/mL subcutaneous suspension (Novolin N NPH U-100 Insulin isophane) insulin NPH isoph U-100 human 100 32 unit subcut QAM 07/31/22 07/31/22 History unit/mL subcutaneous suspension (Novolin N NPH U-100 Insulin isophane) insulin regular human 100 unit/mL 0 unit subcut .UD PRN Hyperglycemia 07/31/22 07/31/22 History injection solution (Novolin R Regular U-100 Insulin) insulin regular human 100 unit/mL 10 unit subcut QPM 07/31/22 07/31/22 History injection solution (Novolin R Regular U-100 Insulin) insulin regular human 100 unit/mL 14 unit subcut QAM 07/31/22 07/31/22 History injection solution (Novolin R Regular U-100 Insulin) metoprolol tartrate 25 mg tablet 12.5 mg PO BID 07/31/22 07/31/22 History rosuvastatin 20 mg tablet 20 mg PO DAILY 07/31/22 07/31/22 History sertraline 100 mg tablet 100 mg PO DAILY 07/31/22 07/31/22 History apixaban 5 mg tablet (Eliquis) 10 mg PO BID 7 days #28 tabs 08/02/22 Rx Hospital Stay Data Consultations 07/31/22 13:53 ED Decision to Admit Stat Diagnostic Imagining Performed 07/31/22 10:24 US venous doppler LE LT Stat 07/31/22 13:13 CT angio chest PE protocol Stat Pending Results Patient Have Any Pending Studies at Discharge: Yes (FVL, homocysteine, prothro mbin) Discharge Instructions Given to Patient (Per Discharging Provider) Acute pulmonary embolism: Unprovoked - recommend 6 months of treatment and making sure he is up-to-date on all cancer screening (he has never had a colonoscopy) TTE without evidence of right heart strain, no SOB, no supplemental oxygen needs FVL, prothrombin, homocysteine levels pending; consider Hematology referral in the future Heparin gtt -> transitioned to Eliquis 10mg BID x7 days starting 08/02, with Eliquis 5mg BID thereafter Left leg DVT: DVT noted on imaging that extends from the proximal femoral vein to the mid posterior tibial and peroneal veins Treatment with anticoagulation as above Hyperlipidemia: Continue rosuvastatin 20 mg p.o. daily Schizophrenia: Continue aripiprazole 20 mg p.o. daily Continue sertraline 100 mg p.o. daily Continue hydroxyzine 100 mg p.o. at bedtime Type 2 diabetes mellitus: HbA1c 12.7 on 07/31/22 Patient endorses noncomplaince to insulin regimen and nonadherence to diabetic- friendly diet Continue previous insulin recommendations from correctional facility Humulin-N 32 units with breakfast/20 units with supper Humulin-R 14 units with breakfast/10 units with supper + sliding scale clinical trial educator consulted and stressed importance of BSG control especially for future eye, kidney, heart, foot health Hypertension: Continue metoprolol tartrate 12.5 mg p.o. twice daily Plan DVT/PE treatment and d/c back to [facility] Total Time Total Time Spent Total Time Spent (In Minutes): 40 min Coding Level of Care Code HOSP INP/OBS DISCH >30 MIN Diagnoses Acute pulmonary embolism I26.99 Left leg DVT I82.402 Hyperlipidemia E78.5 Schizophrenia F20.9 Type 2 diabetes mellitus E11.9 Hypertension I10
== END 2022-08-02 12:51 ==
LOC: ED 09:53 → 4W 09:53 → SUATTDRO 14:25 → 4W 15:02